=== PATIENT | female | born 1960 | race Hispanic/Latino ===

== ENCOUNTER 2019-12-21 08:19 | Emergency (ER) | payer OTHER ==
[~2019-12-21] VITALS: Ht 157.5 cm; Wt 77.1 kg
--- NOTE | 2019-12-21 09:08 | Emergency Department Note ---
History of Present Illnes History of Present Illness Chief Complaint: COVID PUI History of Present Illness This is a 59 year old female, with a history of hyperlipidemia, who states that she has had a chronic cough since 2007, but that the cough has been productive of white sputum for the past 3 days. She had atelemedicine visit with her physician 3 days ago, and was placed on a Z-Ryan and Tessalon Perles for her symptoms. She had a temp of 99.5 yesterday. She denies any chest pain, shortness of breath, nausea, vomiting, diarrhea, headache, or diarrhea. 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 She has not had a Covid 19 test, and she is afraid to go back to work with her current symptoms. She did not receive a note from her primary care physician to self quarantine Historian: Patient Arrival Mode: Car Planning Technician Required: No Onset (how long ago): day(s) (3) Location: body aches, cough Quality: achy Radiation: Reports non-radiation Severity: moderate Onset quality: sudden Duration (how long): day(s) (3) Timing of current episode: constant Progression: unchanged Chronicity: new Context: Denies recent illness, Denies recent travel Relieving factors: none Exacerbating factors: none Associated symptoms: Reports cough, Reports malaise; Denies chest pain, Denies fever/chills, Denies headaches, Denies shortness of breath, Denies weakness Treatments prior to arrival: none Risk factors: 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 Any updates have been documented here. Past Medical History Recent Fever: Yes (99.5) Clinical Suspicion of Infectio: Yes New/Unexplained Change in Ment: No Other Medical History: HIGH CHOLESTEROL Past Surgical History: Hysterectomy Other Surgery: RIGHT HIP SURGERY x 2 Social History Smoking Cessation: Never Smoker Counseling Performed: No Alcohol Use: None Any Illegal Drug Use: No TB Exposure/Symptoms: No Physically hurt or threatened: No Family History Family history of heart diseas: No Other Last Tetanus: UTD Any Pre-Existing Lines (PICC,: No Is patient up to date on immun: Yes Last Flu: YES Last Pneumovax: YES Review of Systems Review of Systems Constitutional: Reports no symptoms, Reports as per HPI, Reports chills, Reports fever (low-grade), Reports malaise, Reports other EENTM: Reports no symptoms Cardiovascular: Denies chest pain, Denies palpitations Respiratory: Reports change in phlegm color (white), Reports cough; Denies chest congestion, Denies excessive phlegm production, Denies pain on inspiration, Denies pain with cough, Denies dyspnea Gastrointestinal: Denies abdominal pain, Denies diarrhea, Denies nausea, Denies vomiting Genitourinary: Denies dysuria, Denies frequency Musculoskeletal: Reports muscle pain; Denies back pain, Denies neck pain (myalgia) Integumentary: Denies rash Neurological: Denies headache Hematological/Lymphatic: Denies easy bruising, Denies swollen glands Review of other systems: All other systems negative Physical Exam Related Data Allergies: Coded Allergies: No Known Allergies (Unverified , 05/20/14) Vital signs reviewed: Yes Physical Exam CONSTITUTIONAL Constitutional: Present well-developed, Present well-nourished HENT HENT: Present normocephalic, Present atraumatic, Present oropharynx clear/moist, Present nose normal HENT L/R: Present left TM normal, Present right TM normal, Present left ext ear normal, Present right ext ear normal EYES Eyes: Reports PERRL, Reports conjunctivae normal NECK Neck: Present ROM normal PULMONARY Pulmonary: Present effort normal, Present breath sounds normal CARDIOVASCULAR Cardiovascular: Present regular rhythm, Present heart sounds normal, Present capillary refill normal, Present normal rate GASTROINTESTINAL Abdominal: Present soft, Present nontender, Present bowel sounds normal GENITOURINARY Genitourinary: Present exam deferred SKIN Skin: Present warm, Present dry; Absent rash MUSCULOSKELETAL Musculoskeletal: Absent edema, Absent tenderness NEUROLOGICAL Neurological: Present alert, Present oriented x 3 PSYCHOLOGICAL Psychological: Present mood/affect normal, Present judgement normal Assessment & Plan Medical Decision Making MDM - increase fluid intake, especially water. You need to drink 8 bottles of water/day. - Use the inhaler - 2 puffs every 4 hours, as needed, for cough. - Recommend: Mucinex 600 mg - 2 tabs together every 6 hours, as needed, for cough and mucous production. - You may take Extra Strength Tylenol 500 mg - 2 tabs together every 4 hours, as needed. - It is recommended that you self quarantine for 14 days, to prevent possible spread of Covid 19. - It is also recommended that he be tested for Covid 19, prior to returning to work. Assessment & Plan Final Impression: (1) Acute viral syndrome (2) Suspected 2019 novel coronavirus infection (3) Acute bronchospasm Depart Disposition: HOME, SELF-halfway Meds Active Scripts Albuterol Sulf* (PROAIR HFA INHALER*) 8.5 Gm Inh, 2 INH INH Q4HR for cough, #1 INH 0 Refills Prov:ISMAEL HEREDIA MD 12/21/19 ISMAEL HEREDIA MD Dec 21, 2019 09:08
[2019-12-21] MEDS ORDERED: PROAIR HFA INH8.5 GM INH (09:14)
== END 2019-12-21 09:30 | disposition home or self-care (01) ==
LOC: FSED 08:19
DX: B34.9 Viral infection, unspecified (principal); J98.01 Acute bronchospasm; R05 Cough; Z20.828 Contact with and (suspected) exposure to other viral communicable diseases; E78.00 Pure hypercholesterolemia, unspecified
CPT/HCPCS: 99282

== ENCOUNTER 2024-08-23 20:00 | Emergency (ER) | payer MEDICARE, OTHER ==
[~2024-08-23] VITALS: Ht 157.5 cm; Wt 78.5 kg
[~2024-08-23 20:00] MED LIST: PROAIR HFA INH8.5 GM INH
[2024-08-23] MEDS: ACETAMINOPHEN 325 MG TAB PO ONE (21:11)
[2024-08-23] MEDS: HYDROCODONE/APAP 5MG-325MG TAB PO ONE (22:35)
[2024-08-23] MEDS ORDERED: HYDROCODON-ACE1 EA11 PO (23:47)
[2024-08-24] VITALS: PULSE 78; RESP 16; TEMP 98.2; O2SAT 98
== END 2024-08-24 | disposition home or self-care (01) ==
LOC: ER 22:20
DX: S42.291A Other displaced fracture of upper end of right humerus, initial encounter for closed fracture (principal); S50.311A Abrasion of right elbow, initial encounter; W01.0XXA Fall on same level from slipping, tripping and stumbling without subsequent striking against object, initial encounter; Y93.01 Activity, walking, marching and hiking; Y92.89 Other specified places as the place of occurrence of the external cause; E78.5 Hyperlipidemia, unspecified; E78.00 Pure hypercholesterolemia, unspecified; M19.09 Primary osteoarthritis, other specified site
CPT/HCPCS: 99284